=== PATIENT | female | born 1970 | race Two or more races ===

== ENCOUNTER 2020-07-19 09:01 | Emergency (ER) | payer MEDICAID ==
[~2020-07-19] VITALS: Ht 162.6 cm; Wt 78.2 kg
[2020-07-19 09:06] VITALS: BP 159/101
--- NOTE | 2020-07-19 11:00 | NUR ---
NO ANSWER IN LOBBY AT THIS TIME OR RESTROOM.
--- NOTE | 2020-07-19 11:13 | NUR ---
NO ANSWER IN LOBBY AT THIS TIME.
--- NOTE | 2020-07-19 11:29 | NUR ---
NO ANSWER IN LOBBY AT THIS TIME.
== END 2020-07-19 11:35 | disposition left against medical advice (07) ==
LOC: ED 09:15
DX: H66.90 Otitis media, unspecified, unspecified ear (principal)
CPT/HCPCS: 99281

== ENCOUNTER 2020-07-19 15:59 | Emergency (ER) | payer MEDICAID ==
[~2020-07-19] VITALS: Ht 162.6 cm; Wt 79.8 kg
[2020-07-19 16:00] VITALS: BP 161/103
[2020-07-19] MEDS ORDERED: OXYcodone/APAP 5/325MG TABLET ONE (16:59)
[2020-07-19] MEDS ORDERED: IBUPROFEN 600 MG TABLET ONE (16:59)
[2020-07-19] MEDS ORDERED: OXYcodone/APAP 5/325MG TABLET PO ONE (17:00)
[2020-07-19] MEDS ORDERED: IBUPROFEN 200 MG TABLET PO ONE (17:00)
--- NOTE | 2020-07-19 17:02 | NUR ---
MEDS ADMIN PER JAN.
== END 2020-07-19 17:19 | disposition home or self-care (01) ==
LOC: ED 16:47
DX: H66.001 Acute suppurative otitis media without spontaneous rupture of ear drum, right ear (principal)
CPT/HCPCS: 99283

== ENCOUNTER 2021-01-06 09:30 | Emergency (ER) | payer MEDICAID ==
[~2021-01-06] VITALS: Ht 162.6 cm; Wt 73.7 kg
[2021-01-06 09:36] VITALS: BP 187/97
== END 2021-01-06 10:07 | disposition home or self-care (01) ==
LOC: ED 09:55
DX: J44.9 Chronic obstructive pulmonary disease, unspecified (principal); Z87.891 Personal history of nicotine dependence
CPT/HCPCS: 99281

== ENCOUNTER 2021-01-27 11:01 | Emergency (ER) | payer MEDICAID ==
[~2021-01-27] VITALS: Ht 162.6 cm; Wt 74.8 kg
[2021-01-27 11:11] VITALS: BP 157/99
[2021-01-27] MEDS ORDERED: KETOROLAC 60 MG/2 ML ONE (11:48)
[2021-01-27] MEDS ORDERED: KETOROLAC 30 MG/1 ML IM ONE (12:00)
== END 2021-01-27 14:00 | disposition home or self-care (01) ==
LOC: ED 11:18
DX: M54.2 Cervicalgia (principal); M25.511 Pain in right shoulder; R07.9 Chest pain, unspecified; R94.31 Abnormal electrocardiogram [ECG] [EKG]; I10 Essential (primary) hypertension; J44.9 Chronic obstructive pulmonary disease, unspecified
CPT/HCPCS: 71046; 73030; 93005; 96372; 99284; J1885